=== PATIENT | male | born 1990 | race Caucasian/White ===

== ENCOUNTER 2024-05-13 08:21 | Inpatient (IN) | payer BC ==
--- OUTSIDE RECORDS SUMMARY | 2024-05-13 08:25 | XMS REPORT | Continuity of Care Document ---
Author Name Unknown Address [address] [facility] [address] [place] [address] [facility] Address [address] [facility] [address] [place] [address] Care Team Providers Care Patient Account Analyst Name Role Phone Vikki Godoy Primary Care Physician Medications Ordered Medication Name Filled Medication Name Start Date Stop Date Current Medication? Ordering Clinician Indication Dosage Frequency Signature (SIG) Comments Components Source losartan 100 mg tablet 6-12 00:00: 00 Yes mg José Bella losartan 100 mg tablet 5 00:00: 00 Yes mg José Bella simvastatin 10 mg tablet 5-03 00:00: 00 Yes mg José Bella DEXTROAMP-A MPHET ER 20 MG 1-29 00:00: 00 Yes 20 José Bella TAKE ONE TABLET BID NEEDED FOR MUSCLE SPASM 2022-04 1-30 00:00: 00 08-15 00:00 :00 No 5 José Bella TAKE 1 TABLET BY MOUTH DAILY 2022-04 1-10 00:00: 00 08-15 00:00 :00 No 100 José Bella SIMVASTATIN 10 MG 9-11 00:00: 00 Yes 10 José Bella DEXAMETHASO NE 4 MG 8-17 00:00: 00 Yes José Bella TAKE 1 TABLET BY MOUTH EVERY 8 HOURS UNTIL ALL TAKEN 17 00:00: 00 Yes José Bella TAKE 1 TABLET BY MOUTH EVERY 6 HOURS NEEDED FOR PAIN 17 00:00: 00 Yes José Bella TAKE 1 TABLET BY MOUTH EVERY 6 HOURS NEEDED FOR PAIN 8-15 00:00: 00 Yes José Bella AMOXICILLIN 875 MG 8-15 00:00: 00 Yes José Bella TAKE 1 TABLET BY MOUTH AT BEDTIME 8-08 00:00: 00 Yes José Bella LOSARTAN POTASSIUM 100 MG 8-02 00:00: 00 Yes José Bella TAKE 1 CAPSULE BY MOUTH THREE TIMES DAILY FOR 7 DAYS 0 7-21 00:00: 00 Yes José Bella TAKE 1 TABLET TWICE DAILY NEEDED. 5-13 00:00: 00 08-15 00:00 :00 No 10 José Bella TAKE 1 TABLET EVERY 8 HOURS WITH FOOD NEEDED. 5-13 00:00: 00 08-15 00:00 :00 No 800 José Bella TAKE 1 TABLET AT BEDTIME. - 00:00: 00 08-15 00:00 :00 No 10 José Bella TAKE 1 TABLET DAILY. 4-20 00:00: 00 08-15 00:00 :00 No 100 José Bella TAKE 1 TABLET DAILY. 3-14 00:00: 00 08-15 00:00 :00 No 100 José Bella TAKE 1 TABLET DAILY. 3-09 00:00: 00 08-15 00:00 :00 No 50 José Bella TAKE 1 TABLET BY MOUTH TWICE DAILY FOR 7 DAYS 2-16 00:00: 00 08-15 00:00 :00 No José Bella PREDNISONE 5 MG TABS 2-16 00:00: 00 08-15 00:00 :00 No José Tiffanie Bella ONDANSETRON ODT 4 MG TBDP 2021-04 0-02 00:00: 00 08-15 00:00 :00 No José Tiffanie Bella TAKE 1 TABLET BY MOUTH TWICE DAILY FOR 5 DAYS - 00:00: 00 08-15 00:00 :00 No José Tiffanie Shayne AZITHROMYCI N 250 MG TABS - 00:00: 00 08-15 00:00 :00 No José Bella ALBUTEROL SULFATE HFA 108 (90 Base) MCG/ACT AERS 9-07 00:00: 00 08-15 00:00 :00 No José F Shayne AMOXICILLIN 500 MG 4-25 00:00: 00 08-15 00:00 :00 No José F Shayne Vital Signs Vital Name Observation Time Observation Value Comments S ource BP Systolic 2023-09-25 17:27:00 136 mm[Hg] Step hen F Shayne BP Diastolic 2023-09-25 17:27:00 71 mm[Hg] Derrick phen F Shayne Weight Measured 2023-09-25 17:27:00 181.20 pounds José F Shayne Height Measured 2023-09-25 17:27:00 69.00 inches José F Shayne Body Temperature 2023-09-25 17:27:00 97.60 degrees José F Shayne Heart Rate 2023-09-25 17:27:00 67.00 /min Sejal en F Shayne Respiratory Rate 2023-09-25 17:27:00 18.00 /min José F Shayne BP Systolic 2023-05-07 14:35:00 170 mm[Hg] Step hen F Shayne BP Diastolic 2023-05-07 14:35:00 91 mm[Hg] Derrick phen F Shayne Weight Measured 2023-05-07 14:35:00 186.80 pounds José F Shayne Height Measured 2023-05-07 14:35:00 69.00 inches José F Shayne Body Temperature 2023-05-07 14:35:00 98.20 degrees José F Shayne Heart Rate 2023-05-07 14:35:00 68.00 /min Sejal en F Shayne Respiratory Rate 2023-05-07 14:35:00 18.00 /min José F Shayne BP Systolic 2023-03-14 10:28:00 153 mm[Hg] Step hen F Shayne BP Diastolic 2023-03-14 10:28:00 104 mm[Hg] Derrick phen F Shayne Weight Measured 2023-03-14 10:28:00 178.20 pounds José F Shayne Height Measured 2023-03-14 10:28:00 69.00 inches José F Shayne Body Temperature 2023-03-14 10:28:00 98.30 degrees José F Shayne Heart Rate 2023-03-14 10:28:00 81.00 /min Sejal en F Shayne Respiratory Rate 2023-03-14 10:28:00 19.00 /min José F Shayne BP Systolic 2023-02-22 11:33:00 169 mm[Hg] Step hen F Shayne BP Diastolic 2023-02-22 11:33:00 103 mm[Hg] Derrick phen F Shayne Weight Measured 2023-02-22 11:33:00 178.00 pounds José F Shayne Height Measured 2023-02-22 11:33:00 69.00 inches José F Shayne Body Temperature 2023-02-22 11:33:00 97.90 degrees José F Shayne Heart Rate 2023-02-22 11:33:00 67.00 /min Sejal en F Shayne Respiratory Rate 2023-02-22 11:33:00 José F Shayne BP Systolic 2023-02-22 11:26:00 169 mm[Hg] Step hen F Shayne BP Diastolic 2023-02-22 11:26:00 103 mm[Hg] Derrick phen F Shayne Weight Measured 2023-02-22 11:26:00 178.00 pounds José F Shayne Height Measured 2023-02-22 11:26:00 69.00 inches José F Shayne Body Temperature 2023-02-22 11:26:00 97.90 degrees José F Shayne Heart Rate 2023-02-22 11:26:00 67.00 /min Sejal en F Shyane Respiratory Rate 2023-02-22 11:26:00 José F Shayne BP Systolic 2022-08-01 17:16:00 143 mm[Hg] Step hen F Shayne BP Diastolic 2022-08-01 17:16:00 90 mm[Hg] Derrick phen F Shayne Weight Measured 2022-08-01 17:16:00 177.80 pounds José F Shayne Height Measured 2022-08-01 17:16:00 69.00 inches José F Shayne Body Temperature 2022-08-01 17:16:00 98.30 degrees José F Shayne Heart Rate 2022-08-01 17:16:00 87.00 /min Sejal en F Shayne Respiratory Rate 2022-08-01 17:16:00 18.00 /min José F Shayne Weight Measured 2022-06-25 15:06:00 José Bella Height Measured 2022-06-25 15:06:00 Josédelia Bella Body Temperature 2022-06-25 15:06:00 Josédelia Bella Heart Rate 2022-06-25 15:06:00 Sejal en F Shayne Respiratory Rate 2022-06-25 15:06:00 José Bella BP Systolic 2022-06-25 15:06:00 154 mm[Hg] Step hen F Shayne BP Diastolic 2022-06-25 15:06:00 105 mm[Hg] Derrick phen F Shayne BP Systolic 2022-06-21 10:34:00 167 mm[Hg] Step hen F Shayne BP Diastolic 2022-06-21 10:34:00 96 mm[Hg] Derrick phen Tiffanie Bella Weight Measured 2022-06-21 10:34:00 175.00 pounds José Bella Height Measured 2022-06-21 10:34:00 69.00 inches José Bella Body Temperature 2022-06-21 10:34:00 98.30 degrees José Bella Heart Rate 2022-06-21 10:34:00 68.00 /min Sejal en Tiffanie Bella Respiratory Rate 2022-06-21 10:34:00 18.00 /min José Bella Encounters Start Date/Time End Date/Time Encounter Type Admission Type Attending [facility] Care Department Encounter ID Source 2024-02-07 14:22:03 2024-02-07 14:22:03 Outpatient [facility] [id number] José Bella 2023-09-25 17:22:05 2023-09-25 17:22:05 Outpatient [facility] S[facility] [id number] José Bella 2023-09-25 00:00:00 2023-09-25 00:00:00 Outpatient Visit SFA [id number] José Bella 2023-05-07 14:27:24 2023-05-07 14:27:24 Outpatient [facility] SFA [id number] José Bella 2023-03-14 10:21:41 2023-03-14 10:21:41 Outpatient [facility] SFA [id number] José Bella 2023-02-22 11:22:01 2023-02-22 11:22:01 Outpatient [facility] [id number] José Bella 2022-08-07 11:00:54 2022-08-07 11:00:54 Outpatient [place] [id number] José Bella 2022-08-02 14:01:05 2022-08-02 14:01:05 Outpatient [facility] [id number] José Bella 2022-08-01 17:08:52 2022-08-01 17:08:52 Outpatient [facility] [id number] José Bella 2022-06-26 14:30:55 2022-06-26 14:30:55 Outpatient [facility] [id number] José Bella 2022-06-25 14:51:27 2022-06-25 14:51:27 Outpatient [facility] [id number] José Bella 2022-06-21 10:21:16 2022-06-21 10:21:16 Outpatient [facility] [id number] José Bella Results Test Description Test Time Test Comments Results Result Co mments Source COMPREHENSIVE METABOLIC [id number] 04:20:29* Test Item Value Reference Range Interpretation Comme nts GLUCOSE (test code = 2217) 87 MG/DL 70-99 BUN (test code = 2208) 11 MG/DL 6-20 CREATININE (test code = 2214) 1.35 MG/DL 0.80-1.40 eGFR (2020 CKD-EPI) (test code = 15017) 71 ML/MIN/1.73 >60 CALC BUN/CREAT (test code = 2235) 8 RATIO 6-28 SODIUM (test code = 2231) 143 MEQ/L 133-146 POTASSIUM (test code = 2228) 4.0 MEQ/L 3.5-5.4 CHLORIDE (test code = 2215) 103 MEQ/L 95-107 CARBON DIOXIDE (test code = 2206) 28 MEQ/L 19-31 CALCIUM (test code = 2209) 9.6 MG/DL 8.5-10.5 PROTEIN, TOTAL (test code = 222) 7.0 G/DL 6.1-8.3 ALBUMIN (test code = 2201) 4.7 G/DL 3.5-5.2 CALC GLOBULIN (test code = 2240) 2.3 G/DL 1.9-3.7 CALC A/G RATIO (test code = 2234) 2.0 RATIO 1.0-2.6 BILIRUBIN, TOTAL (test code = 2207) 0.4 MG/DL <=1.2 ALKALINE PHOSPHATASE (test code = 2204) 53 U/L 40-112 AST (test code = 2218) 20 U/L 9-50 ALT (test code = 2219) 26 U/L 5-50 UNLESS OTHERWISE INDICATED, ALL TESTING PERFORMED AT [facility] [address] [place] [id number] DETECTIVE NARCOTICS AND VICE: SARANYA PETERS M.D. CLIA NUMBER [id number] [facility] [place]. [id number] HEMOGLOBIN [id number] 02:31:16* Test Item Value Reference Range Interpretation Comme nts HEMOGLOBIN A1c (test code = 22560) 5.4 % 4.2-5.6 CBC W/AUTO DIFF WITH [id number] 01:35:42* Test Item Value Reference Range Interpretation Comme nts WBC (test code = 1001) 8.2 K/UL 3.5-11.0 RBC (test code = 1002) 5.24 M/UL 4.50-6.10 HEMOGLOBIN (test code = 1003) 15.8 G/DL 13.5-17.0 HEMATOCRIT (test code = 1004) 45.6 % 40.0-51.0 MCV (test code = 1005) 87.0 fL 80.0-99.0 MCH (test code = 1006) 30.2 PG 25.0-33.0 MCHC (test code = 1007) 34.6 G/DL 31.0-36.0 RDW (test code = 1038) 12.1 % 11.5-15.0 NEUTROPHILS (test code = 1008) 54.0 % LYMPHOCYTES (test code = 1010) 30.5 % MONOCYTES (test code = 1011) 6.8 % EOSINOPHILS (test code = 1012) 7.9 % BASOPHILS (test code = 1013) 0.7 % IMMATURE GRANULOCYTES (test code = 1036) 0.1 % NUCLEATED RBCS (test code = 1065) 0.0 /100 WBC'S See_Comment [Automated messa ge] The system which generated this result transmitted reference range: 0.0. The reference range was not used to interpret this result as normal/abnormal. PLATELET COUNT (test code = 1015) 288 K/UL 130-400 ABSOLUTE NEUTROPHILS (test code = 1066) 4.45 K/UL 1.50-7.50 ABSOLUTE LYMPHOCYTES (test code = 1067) 2.51 K/UL 1.00-4.00 ABSOLUTE MONOCYTES (test code = 1068) 0.56 K/UL 0.20-1.00 ABSOLUTE EOSINOPHILS (test code = 1040) 0.65 K/UL 0.00-0.50 H ABSOLUTE BASOPHILS (test code = 1069) 0.06 K/UL 0.00-0.20 ABS IMMATURE GRANULOCYTES (test code = 1020) 0.01 K/UL 0.00-0.10 ABS NUCLEATED RBCS (test code = 24723) 0.00 K/UL 0.00-0.11 CBC W/AUTO [id number] 00:00:00* Test Item Value Reference Range Interpretation Comme nts WBC (test code = 1001) 8.2 K/UL RBC (test code = 1002) 5.24 M/UL HEMOGLOBIN (test code = 1003) 15.8 G/DL HEMATOCRIT (test code = 1004) 45.6 % MCV (test code = 1005) 87.0 fL MCH (test code = 1006) 30.2 PG MCHC (test code = 1007) 34.6 G/DL RDW (test code = 1038) 12.1 % NEUTROPHILS (test code = 1008) 54.0 % LYMPHOCYTES (test code = 1010) 30.5 % MONOCYTES (test code = 1011) 6.8 % EOSINOPHILS (test code = 1012) 7.9 % BASOPHILS (test code = 1013) 0.7 % IMMATURE GRANULOCYTES (test code = 1036) 0.1 % NUCLEATED RBCS (test code = 1065) 0.0 /100WBC'S PLATELET COUNT (test code = 1015) 288 K/UL ABSOLUTE NEUTROPHILS (test c ode = 1066) 4.45 K/UL ABSOLUTE LYMPHOCYTES (test c ode = 1067) 2.51 K/UL ABSOLUTE MONOCYTES (test cod e = 1068) 0.56 K/UL ABSOLUTE EOSINOPHILS (test c ode = 1040) 0.65 K/UL ABSOLUTE BASOPHILS (test cod e = 1069) 0.06 K/UL ABS IMMATURE GRANULOCYTES (t est code = 1020) 0.01 K/UL ABS NUCLEATED RBCS (test cod e = 74887) 0.00 K/UL José BellaHEMOGLOBIN [id number] 00:00:00* Test Item Value Reference Range Interpretation Comme nts HEMOGLOBIN A1c (test code = 23145) 5.4 % José Moreno AustinLIPID [id number] 00:00:00* Test Item Value Reference Range Interpretation Comme nts CHOLESTEROL (test code = 2210) 179 MG/DL TRIGLYCERIDES (test code = 2232) 237 MG/DL HDL CHOLESTEROL (test code = 2220) 35 MG/DL CALC LDL CHOL (test code = 2237) 108 MG/DL RISK RATIO LDL/HDL (test cod e = 2238) 3.09 RATIO José BellaCOMPREHENSIVE METABOLIC [id number] 00:00:00* Test Item Value Reference Range Interpretation Comme nts GLUCOSE (test code = 2217) 87 MG/DL BUN (test code = 2208) 11 MG/DL CREATININE (test code = 2214) 1.35 MG/DL eGFR (2020 CKD-EPI) (test co de = 04277) 71 ML/MIN/1.73 CALC BUN/CREAT (test code = 2235) 8 RATIO SODIUM (test code = 2231) 143 MEQ/L POTASSIUM (test code = 2228) 4.0 MEQ/L CHLORIDE (test code = 2215) 103 MEQ/L CARBON DIOXIDE (test code = 2206) 28 MEQ/L CALCIUM (test code = 2209) 9.6 MG/DL PROTEIN, TOTAL (test code = 2229) 7.0 G/DL ALBUMIN (test code = 2201) 4.7 G/DL CALC GLOBULIN (test code = 2240) 2.3 G/DL CALC A/G RATIO (test code = 2234) 2.0 RATIO BILIRUBIN, TOTAL (test code = 2207) 0.4 MG/DL ALKALINE PHOSPHATASE (test code = 2204) 53 U/L AST (test code = 2218) 20 U/L ALT (test code = 2219) 26 U/L José Moreno AustinLIPID [id number] 06:12:20* Test Item Value Reference Range Interpretation Comme nts CHOLESTEROL (test code = 2210) 258 MG/DL <200 H TRIGLYCERIDES (test code = 2232) 159 MG/DL <150 H HDL CHOLESTEROL (test code = 2220) 49 MG/DL >39 CALC LDL CHOL (test code = 2237) 178 MG/DL <100 H NOTE: CALCULATED LDL IS BASED ON LOI-MONTES METHOD WHICHINCLUDES ADJUSTABLE TRIGLYCERIDE:VLDL CHOLESTEROL RATIO.THIS FACTOR VARIES BY MEASURED TRIGLYCERIDE AND NON-HDLCHOLESTEROL CONCENTRATIONS WITH INCREASED CALCULATED LDL SEENIN HIGHER TRIGLYCERIDE OR LOWER NON-HDL SPECIMENS. FOR MOREINFORMATION, SEE CLIENT ANNOUNCEMENT AT [email or web address] RISK RATIO LDL/HDL (test code = 2238) 3.63 RATIO <3.55 H COMPREHENSIVE METABOLIC [id number] 06:12:20* Test Item Value Reference Range Interpretation Comme nts GLUCOSE (test code = 2216) 93 MG/DL 70-99 BUN (test code = 2207) 16 MG/DL 6-20 CREATININE (test code = 2214) 1.18 MG/DL 0.80-1.40 eGFR (2020 CKD-EPI) (test code = 85804) 84 ML/MIN/1.73 >60 CALC BUN/CREAT (test code = 2235) 14 RATIO 6-28 SODIUM (test code = 223) 143 MEQ/L 133-146 POTASSIUM (test code = 2228) 4.4 MEQ/L 3.5-5.4 CHLORIDE (test code = 2215) 105 MEQ/L 95-107 CARBON DIOXIDE (test code = 2206) 26 MEQ/L 19-31 CALCIUM (test code = 2209) 9.7 MG/DL 8.5-10.5 PROTEIN, TOTAL (test code = 222) 7.1 G/DL 6.1-8.3 ALBUMIN (test code = 1) 5.0 G/DL 3.5-5.2 CALC GLOBULIN (test code = 2240) 2.1 G/DL 1.9-3.7 CALC A/G RATIO (test code = 2234) 2.4 RATIO 1.0-2.6 BILIRUBIN, TOTAL (test code = 2206) 0.7 MG/DL <=1.2 ALKALINE PHOSPHATASE (test code = 2204) 58 U/L 40-112 AST (test code = 2218) 30 U/L 9-50 ALT (test code = 2219) 34 U/L 5-50 UNLESS OTHERWISE INDICATED, ALL TESTING PERFORMED AT [facility] [address] [place] [address] DETECTIVE NARCOTICS AND VICE: SARANYA PETERS M.D. IA NUMBER [id number] [facility] [place]. [id number] LIPID [id number] 00:00:00* Test Item Value Reference Range Interpretation Comme nts CHOLESTEROL (test code = 2210) 258 MG/DL TRIGLYCERIDES (test code = 2232) 159 MG/DL HDL CHOLESTEROL (test code = 2220) 49 MG/DL CALC LDL CHOL (test code = 2237) 178 MG/DL RISK RATIO LDL/HDL (test cod e = 2238) 3.63 RATIO José BellaCOMPREHENSIVE METABOLIC [id number] 00:00:00* Test Item Value Reference Range Interpretation Comme nts GLUCOSE (test code = 2217) 93 MG/DL BUN (test code = 2208) 16 MG/DL CREATININE (test code = 2214) 1.18 MG/DL eGFR (2020 CKD-EPI) (test co de = 32620) 84 ML/MIN/1.73 CALC BUN/CREAT (test code = 2235) 14 RATIO SODIUM (test code = 2231) 143 MEQ/L POTASSIUM (test code = 2228) 4.4 MEQ/L CHLORIDE (test code = 2215) 105 MEQ/L CARBON DIOXIDE (test code = 2206) 26 MEQ/L CALCIUM (test code = 2209) 9.7 MG/DL PROTEIN, TOTAL (test code = 2229) 7.1 G/DL ALBUMIN (test code = 2201) 5.0 G/DL CALC GLOBULIN (test code = 2240) 2.1 G/DL CALC A/G RATIO (test code = 2234) 2.4 RATIO BILIRUBIN, TOTAL (test code = 2207) 0.7 MG/DL ALKALINE PHOSPHATASE (test code = 2204) 58 U/L AST (test code = 2218) 30 U/L ALT (test code = 2219) 34 U/L José BellaCOMPREHENSIVE METABOLIC [id number] 09:36:55* Test Item Value Reference Range Interpretation Comme nts GLUCOSE (test code = 2216) 92 MG/DL 70-99 BUN (test code = 2207) 14 MG/DL 6-20 CREATININE (test code = 2213) 1.06 MG/DL 0.80-1.40 eGFR (2020 CKD-EPI) (test code = 10997) 96 ML/MIN/1.73 >60 CALC BUN/CREAT (test code = 2234) 13 RATIO 6-28 SODIUM (test code = 2230) 143 MEQ/L 133-146 POTASSIUM (test code = 2227) 4.2 MEQ/L 3.5-5.4 CHLORIDE (test code = 2214) 104 MEQ/L 95-107 CARBON DIOXIDE (test code = 2205) 25 MEQ/L 19-31 CALCIUM (test code = 2208) 9.7 MG/DL 8.5-10.5 PROTEIN, TOTAL (test code = 2228) 7.7 G/DL 6.1-8.3 ALBUMIN (test code = 2200) 4.9 G/DL 3.5-5.2 CALC GLOBULIN (test code = 2239) 2.8 G/DL 1.9-3.7 CALC A/G RATIO (test code = 2233) 1.8 RATIO 1.0-2.6 BILIRUBIN, TOTAL (test code = 2206) 0.6 MG/DL See_Comment [Automated me ssage] The system which generated this result transmitted reference range: <=1.2. The reference range was not used to interpret this result as normal/abnormal. ALKALINE PHOSPHATASE (test code = 2203) 73 U/L 40-112 AST (test code = 2217) 23 U/L 9-50 ALT (test code = 221) 43 U/L 5-50 LIPID [id number] 09:36:55* Test Item Value Reference Range Interpretation Comme nts CHOLESTEROL (test code = 2210) 254 MG/DL <200 H TRIGLYCERIDES (test code = 2232) 249 MG/DL <150 H HDL CHOLESTEROL (test code = 2220) 42 MG/DL >39 CALC LDL CHOL (test code = 223) 171 MG/DL <100 H NOTE: CALCULATED LDL IS BASED ON LOI-MONTES METHOD WHICHINCLUDES ADJUSTABLE TRIGLYCERIDE:VLDL CHOLESTEROL RATIO.THIS FACTOR VARIES BY MEASURED TRIGLYCERIDE AND NON-HDLCHOLESTEROL CONCENTRATIONS WITH INCREASED CALCULATED LDL SEENIN HIGHER TRIGLYCERIDE OR LOWER NON-HDL SPECIMENS. FOR MOREINFORMATION, SEE CLIENT ANNOUNCEMENT AT [email or web address] [email or web address] RATIO LDL/HDL (test code = 2238) 4.07 RATIO <3.55 H [facility] has i mportant pathology staff changes effective 06/13/2022. New pathology staff will provide uninterrupted, excellent patient care and clinical consultation. See URL: [email or web address]. UNLESS OTHERWISE INDICATED, ALL TESTING PERFORMED AT [facility] [address] [place] [address] DETECTIVE NARCOTICS AND VICE: SARANYA PETERS M.D. IA NUMBER [id number] [facility] [place]. [id number] COMPREHENSIVE METABOLIC [id number] 00:00:00* Test Item Value Reference Range Interpretation Comme nts GLUCOSE (test code = 2217) 92 MG/DL BUN (test code = 2208) 14 MG/DL CREATININE (test code = 2214) 1.06 MG/DL eGFR (2020 CKD-EPI) (test co de = 78777) 96 ML/MIN/1.73 CALC BUN/CREAT (test code = 2235) 13 RATIO SODIUM (test code = 2231) 143 MEQ/L POTASSIUM (test code = 2228) 4.2 MEQ/L CHLORIDE (test code = 2215) 104 MEQ/L CARBON DIOXIDE (test code = 2206) 25 MEQ/L CALCIUM (test code = 2209) 9.7 MG/DL PROTEIN, TOTAL (test code = 2229) 7.7 G/DL ALBUMIN (test code = 2201) 4.9 G/DL CALC GLOBULIN (test code = 2240) 2.8 G/DL CALC A/G RATIO (test code = 2234) 1.8 RATIO BILIRUBIN, TOTAL (test code = 2207) 0.6 MG/DL ALKALINE PHOSPHATASE (test code = 2204) 73 U/L AST (test code = 2218) 23 U/L ALT (test code = 2219) 43 U/L José BellaLIPID [id number] 00:00:00* Test Item Value Reference Range Interpretation Comme nts CHOLESTEROL (test code = 2210) 254 MG/DL TRIGLYCERIDES (test code = 2232) 249 MG/DL HDL CHOLESTEROL (test code = 2220) 42 MG/DL CALC LDL CHOL (test code = 2237) 171 MG/DL RISK RATIO LDL/HDL (test cod e = 2238) 4.07 RATIO José Bella
[2024-05-13] MEDS ORDERED: ONDANSETRON 4 MG/2 ML VIAL ONE (09:03)
[2024-05-13] MEDS ORDERED: LIDOCAINE VISCOUS 2% 10ML ORAL SOLN ONE (09:04)
[2024-05-13] MEDS ORDERED: FAMOTIDINE 20 MG/2 ML VIAL IV ONE (09:04)
[2024-05-13] MEDS ORDERED: MAGNES/ALUMIN/SIMET 30ML UCUP ONE (09:04)
--- NOTE | 2024-05-13 09:27 | RAD REPORT ---
EXAMINATION: CT ABDOMEN AND PELVIS WITH CONTRAST CLINICAL INDICATION: Male, 34 years old.ABD PAIN TECHNIQUE: CT abdomen and pelvis was performed, after the administration of IV contrast, [facility]. Axial, sagittal and coronal reconstructions were obtained. One or more of the following dose reduction techniques were used: Automated exposure control, adjustment of the mA and/o r kV according to patient size, and/or iterative reconstruction. Unless otherwise specified, incidental findings do not require dedicated imaging follow-up. [id number]. COMPARISON: No prior exam. FINDINGS: LOWER CHEST: No acute process identified.No significant pericardial effusion. Mild circumferential th ickening of the distal esophagus which could reflect esophagitis. UPPER GI: No significant abnormality. LIVER: No significant focal abnormality. GALLBLADDER/BILE DUCTS: No biliary ductal dilatation.? PANCREAS: No mass, ductal dilation, or mariela-pancreatic fluid. SPLEEN: Unremarkable. ADRENALS: No adrenal masses. KIDNEYS AND URETERS: No hydronephrosis.No suspicious renal mass. ABDOMINAL AORTA AND OTHER VESSELS: Normal caliber aorta and IVC. PERITONEUM: No abnormal free fluid. No free air. LYMPH NODES: No pathologic lymphadenopathy. ABDOMINAL WALL: Unremarkable SMALL BOWEL/COLON: Small bowel has normal course and caliber. No colonic wall thickening or pericolon ic inflammatory changes.Normal appendix. URINARY BLADDER: Underdistended but grossly unremarkable. REPRODUCTIVE ORGANS: No pathologic process. MUSCULOSKELETAL: No acute or suspicious osseous abnormality. ADDITIONAL FINDINGS: None. IMPRESSION: No acute or significant abnormalities seen in the abdomen or pelvis. No acute appendicitis. No urinar y tract calculi.
[2024-05-13 09:40] LABS: Absolute Basophils 0.2 K/uL (0-0.5); Absolute Lymphocytes (CBC) 4.7 K/uL (0.7-4.9); Absolute Monocytes 0.8 K/uL (0.1-1.3); Basophils % 0.8 % (0-1.3); Eosinophils % 28.2 % (0-4.4); Hemoglobin 16.1 g/dL (13.6-17.9); MCH 28.6 pg (27.0-35.0); MCHC 32.9 g/dL (32.0-36.0); MCV 86.8 fL (80-100); MPV 9.1 fL (7.6-11.3); Monocytes % 3.3 % (3.3-12.3); Neutrophils % 48.7 % (41.7-73.7); Nucleated Red Blood Cells % 0.1 % (0-0); Platelets 290 thou/uL (152-406); RBC Red Blood Cell Count 5.65 M/uL (4.33-5.43); Red Cell Distribution Width 13.8 % (12.1-15.2)
[2024-05-13 09:46] LABS: Albumin 3.6 g/dL (3.4-5.0); Albumin/Globulin Ratio 1.1 (1.1-1.8); Anion Gap 6.6 mEq/L (5.0-15.0); Bilirubin Total 0.2 mg/dL (0.2-1.0); Globulin 3.4 g/dL (2.3-3.5); Potassium 3.6 mEq/L (3.5-5.1)
[2024-05-13 10:55] LABS: Atypical Lymphocytes 1 %; Blood Morphology Comment NOT SEEN (NOT SEEN); Differential Total Cells Count 100; Eosinophils 27 % (0-3); Lymphocytes 17 % (15-42); Monocytes 2 % (0-10); Platelet Estimate ADEQ; Segmented Neutrophils 53 % (40-80)
--- NOTE | 2024-05-13 11:18 | RAD REPORT ---
Abdomen Exam Limited: 05/13/2024 11:06 AM CLINICAL HISTORY: ABD PAIN STUDY: Limited right upper quadrant ultrasound of abdomen. COMPARISON: Same day CT FINDINGS: Liver: Limited evaluation but grossly unremarkable. Bile ducts: No intrahepatic or extrahepatic biliary ductal dilatation. Common bile duct measures 2 mm. Gallbladder: Borderline gallbladder wall thickening but no infiltrate findings suggest acute cholecys titis. IMPRESSION: Borderline gallbladder wall thickening which is of doubtful significance. No ancillary findings to marie ggest acute cholecystitis. Negative for cholelithiasis.
--- NOTE | 2024-05-13 11:35 | ER ---
Nurse's Notes [facility] Name: Zack Dc Age: 34 yrs Sex: Male : 1990 Arrival Date: 05/13/2024 Time: 08:21 Bed 2 Private MD: Diagnosis: Abdominal pain, unspecified;Esophagitis, unspecified;Gallbladder wall thickening Presentation: 05/13 08:52 Chief complaint: Patient states: Abdominal pain, radiates to back, reports nausea x 1 jl7 week, denies vomiting/diarrhea. Reports eating and drinking normal. Coronavirus screen: At this time, the client does not indicate any symptoms associated with coronavirus-19. Ebola Screen: No symptoms or risks identified at this time. Initial Sepsis Screen: Does the patient meet any 2 criteria? No. Patient's initial sepsis screen is negative. Does the patient have a suspected source of infection? No. Patient's initial sepsis screen is negative. Risk Assessment: Do you want to hurt yourself or someone else? Patient reports no desire to harm self or others. Onset of symptoms was May 06, 2024. 08:52 Method Of Arrival: Ambulatory jl7 08:52 Acuity: KASIA 2 jl7 Triage Assessment: 08:54 General: Appears in no apparent distress. uncomfortable, Behavior is calm, cooperative, jl7 appropriate for age. Pain: Complains of pain in back and abdomen. Neuro: Level of Consciousness is awake, alert, obeys commands, Oriented to person, place, time, situation. Cardiovascular: Patient's skin is warm and dry. Respiratory: Airway is patent Respiratory effort is even, unlabored, Respiratory pattern is regular, symmetrical. GI: Reports nausea. Derm: Skin is pink, warm \T\ dry. Historical: - Allergies: 08:54 No Known Allergies; jl7 - Home Meds: 08:54 losartan oral [Active]; jl7 - PMHx: 08:54 Hypertensive disorder; jl7 - Immunization history:: Adult Immunizations unknown. - Infectious Disease History:: Denies. - Social history:: Smoking status: unknown. - Family history:: not pertinent. - Hospitalizations: : No recent hospitalization is reported. Screenin:05 [facility] ED Fall Risk Assessment (Adult) History of falling in the last 3 months, cm10 including since admission No falls in past 3 months (0 pts) Confusion or Disorientation No (0 pts) Intoxicated or Sedated No (0 pts) Impaired Gait No (0 pts) Mobility Assist Device Used No (0 pt) Altered Elimination No (0 pt) Score/Fall Risk Level 0 - 2 = Low Risk Oriented to surroundings, Maintained a safe environment, Hourly rounding (assess needs \T\ fall precautionary measures) done. Abuse screen: Denies threats or abuse. Denies injuries from another. Nutritional screening: No deficits noted. Tuberculosis screening: No symptoms or risk factors identified. Assessment: 12:04 General: Appears in no apparent distress. comfortable, Behavior is calm, cooperative, cm10 appropriate for age. Pain: Complains of pain in abdomen and back Pain currently is 3 out of 10 on a pain scale. Neuro: No deficits noted. Level of Consciousness is awake, alert, obeys commands, Oriented to person, place, time, situation, Appropriate for age. Respiratory: No deficits noted. Airway is patent Respiratory effort is even, unlabored, Respiratory pattern is regular, symmetrical. GI: Reports lower abdominal pain, nausea. Musculoskeletal: No deficits noted. Range of motion: intact in all extremities. 13:30 Reassessment: Patient appears in no apparent distress at this time. Patient and/or cm10 family updated on plan of care and expected duration. Pain level reassessed. Patient is alert, oriented x 3, equal unlabored respirations, skin warm/dry/pink. Vital Signs: 08:52 BP 197 / 107; Pulse 79; Resp 15; Pulse Ox 97% ; jl7 09:44 BP 168 / 99; Pulse 68; Resp 15; Pulse Ox 100% ; ko1 12:04 BP 170 / 88; Pulse 76; Resp 15; Pulse Ox 100% on R/A; Pain 3/10; cm10 13:00 BP 153 / 89; Pulse 69; Resp 15; Pulse Ox 97% on R/A; cm10 12:04 Pain Scale: Adult cm10 ED Course: 08:24 Patient arrived in ED. al6 08:27 Dom Peralta MD is Attending Physician. rn 08:54 Triage completed. jl7 08:54 Arm band placed on right wrist. jl7 08:58 Magdalene Barrow, STANISLAV is Primary Nurse. ld1 09:16 CT Abd/Pelvis - IV Contrast Only In Process Unspecified. EDMS 09:16 Inserted saline lock: 20 gauge in left antecubital area, using aseptic technique. Blood ko1 collected. Flushed with 10 mL NS. 11:08 US Abdomen Limited In Process Unspecified. EDMS 11:33 Iván Peralta MD is Hospitalizing Provider. rn 11:55 First set of blood cultures drawn by me. cm10 12:03 Primary Nurse role handed off by Magdalene Barrow, STANISLAV cm10 12:03 Courtney Vizcaino, RN is Primary Nurse. cm10 12:03 Lactate w/ 2H reflex if indic. Sent. cm10 12:03 Protime (+inr) Sent. cm10 12:03 Ptt, Activated Sent. cm10 12:05 Patient has correct armband on for positive identification. Bed in low position. Call cm10 light in reach. Side rails up X2. Provided Education on: Need for admit. 12:30 Lab(s) recollected, by me, sent to lab. Second set of blood cultures drawn. Inserted zm saline lock: 20 gauge in right forearm, using aseptic technique. Blood collected. Flushed with 10 mL NS. 14:00 No provider procedures requiring assistance completed. Patient admitted, IV remains in cm10 place. 14:01 Report given to Yuni Delacruz RN with OR. cm10 Administered Medications: 09:10 Drug: GI Cocktail without - (Maalox PO 30 ml, Lidocaine Mucous Membrane 2 % 15 ld1 ml) PO once Route: PO; 09:19 Follow up: Response: No adverse reaction ld1 09:19 Drug: Famotidine IVP 20 mg IVP once; dilute with 10 mL 0.9% NaCl; give over 2 minutes ld1 Route: IVP; Site: left antecubital; 10:45 Follow up: Response: No adverse reaction cm10 09:19 Drug: Ondansetron IVP 4 mg IVP once; over 2 minutes Route: IVP; Site: left antecubital; ld1 10:45 Follow up: Response: No adverse reaction cm10 12:45 Drug: Piperacillin-Tazobactam IVPB 3.375 grams IVPB once over 60 mins; (mix in NS 100 cm10 mL) Route: IVPB; Infused Over: 60 mins; Site: right forearm; 13:15 Follow up: Response: No adverse reaction; IV Status: Completed infusion; IV Intake: cm10 100ml Medication: 14:01 VIS not applicable for this client. cm10 Intake: 13:15 IV: 100ml; Total: 100ml. cm10 Outcome: 11:35 Decision to Hospitalize by Provider. rn 14:00 Admitted to OR accompanied by nurse, via stretcher, cm10 14:00 Condition: good 14:00 Instructed on the need for admit, 14:01 Patient left the ED. cm10 Signatures: Dispatcher [employer] EDMS Dom Peralta MD MD rn Leal, Jahala RN RN jl7 Magdalene Barrow RN RN [email or web address] Fiona Vizcaino Kathy, RN RN ko1 Courtney Vizcaino RN RN cm10 Magdalene Borges
--- NOTE | 2024-05-13 11:36 | EDPHYS ---
Physician Documentation [facility] Name: Zack Dc Age: 34 yrs Sex: Male : 1990 Arrival Date: 05/13/2024 Time: 08:21 Bed 2 Private MD: ED Physician Dom Peralta HPI: 05/13 09:43 This 34 yrs old Male presents to ER via Ambulatory with complaints of Abdominal Pain. rn 09:43 The patient presents to the emergency department with abdominal pain. Onset: The rn symptoms/episode began/occurred 1 week(s) ago. Possible causes: unknown. The symptoms are aggravated by nothing. The symptoms are alleviated by nothing. Severity of symptoms: At their worst the symptoms were mild in the emergency department the symptoms are unchanged. The patient has not experienced similar symptoms in the past. Patient reports epigastric abdominal pain that radiates to the back, associated with mild nausea. Reports increased pain when not eating anything on an empty stomach and about an hour after eating. No trauma. No chest pain. No shortness of breath. No blood in stool or dark stool. Has a history of heartburn.. Historical: - Allergies: 08:54 No Known Allergies; jl7 - Home Meds: 08:54 losartan oral [Active]; jl7 - PMHx: 08:54 Hypertensive disorder; jl7 - Immunization history:: Adult Immunizations unknown. - Infectious Disease History:: Denies. - Social history:: Smoking status: unknown. - Family history:: not pertinent. - Hospitalizations: : No recent hospitalization is reported. ROS: 09:43 Constitutional: Negative for fever, chills, and weight loss, Cardiovascular: Negative rn for chest pain, palpitations, and edema, Respiratory: Negative for shortness of breath, cough, wheezing, and pleuritic chest pain, Abdomen/GI: Positive for epigastric abdominal pain with nausea Back: Positive for back pain : Negative for injury, bleeding, discharge, and swelling, MS/Extremity: Negative for injury and deformity, Neuro: Negative for headache, weakness, numbness, tingling, and seizure, Exam: 09:43 Constitutional: This is a well developed, well nourished patient who is awake, alert, rn and in no acute distress. Cardiovascular: Regular rate and rhythm. No pulse deficits. Respiratory: No increased work of breathing, no retractions or nasal flaring. Abdomen/GI: Soft, mild epigastric tenderness. No rebound or guarding or peritoneal signs Back: No spinal tenderness. No costovertebral tenderness. Full range of motion. Vital Signs: 08:52 BP 197 / 107; Pulse 79; Resp 15; Pulse Ox 97% ; jl7 09:44 BP 168 / 99; Pulse 68; Resp 15; Pulse Ox 100% ; ko1 12:04 BP 170 / 88; Pulse 76; Resp 15; Pulse Ox 100% on R/A; Pain 3/10; cm10 13:00 BP 153 / 89; Pulse 69; Resp 15; Pulse Ox 97% on R/A; cm10 12:04 Pain Scale: Adult cm10 MDM: 08:27 Medical Screening Exam initiated rn 11:31 Differential diagnosis: Nonspecific abd pain, gastritis, cholecystitis, pancreatitis, rn viral gastroenteritis, gastroenteritis. Data reviewed: vital signs, nurses notes, lab test result(s), radiologic studies, CT scan, ultrasound, and as a result, I will admit patient. Consideration of Admission/Observation Patient was admitted/placed on observation. Escalation of care including admission/observation considered. Management of patient was discussed with the following: Musical Instruments Assembler: Discussed case with Dr. Jack, recommends admission to hospitalist service with broad-spectrum antibiotics given elevated WBC and questionable gallbladder wall thickening. Counseling: I had a detailed discussion with the patient and/or guardian regarding the historical points, exam findings, and any diagnostic results supporting the discharge/admit diagnosis, lab results, radiology results, the need for further work-up and treatment in the hospital. ED course: Patient with WBC 24, questionable gallbladder wall thickening. Also mild elevation of lipase and findings of esophagitis on CT. Clinically patient seems more of a gastritis/esophagitis. Will admit to hospitalist service for further care, antibiotics, pain control and GI along with surgical consultations.. 05/13 08:56 Order name: CBC with Diff; Complete Time: 10:59 rn 05/13 08:56 Order name: CMP; Complete Time: 10:20 rn 05/13 08:56 Order name: Lipase; Complete Time: 10:20 rn 05/13 09:44 Order name: Manual Differential; Complete Time: 10:59 EDMS 05/13 11:31 Order name: Blood Culture Adult (2) rn 05/13 11:31 Order name: Lactate w/ 2H reflex if indic.; Complete Time: 12:48 rn 05/13 11:31 Order name: Protime (+inr); Complete Time: 12:48 rn 05/13 11:31 Order name: Ptt, Activated; Complete Time: 12:48 rn 05/13 08:56 Order name: CT Abd/Pelvis - IV Contrast Only; Complete Time: 09:29 rn 05/13 10:43 Order name: US Abdomen Limited; Complete Time: 11:20 rn 05/13 08:56 Order name: IV Saline Lock; Complete Time: 09:19 rn 05/13 08:56 Order name: Labs collected and sent; Complete Time: 09:19 rn 05/13 11:31 Order name: IV Saline Lock - Large Bore; Complete Time: 12:02 rn 05/13 11:31 Order name: O2 Per Protocol; Complete Time: 12:02 rn 05/13 11:31 Order name: O2 Sat Monitoring; Complete Time: 12:02 rn 05/13 11:31 Order name: Vital Signs; Complete Time: 12:02 rn 05/13 12:09 Order name: Labs - recollect needed: recollect lactate use GREEN top on ice; Complete bd Time: 12:40 Administered Medications: 09:10 Drug: GI Cocktail without - (Maalox PO 30 ml, Lidocaine Mucous Membrane 2 % 15 ld1 ml) PO once Route: PO; 09:19 Follow up: Response: No adverse reaction ld1 09:19 Drug: Famotidine IVP 20 mg IVP once; dilute with 10 mL 0.9% NaCl; give over 2 minutes ld1 Route: IVP; Site: left antecubital; 10:45 Follow up: Response: No adverse reaction cm10 09:19 Drug: Ondansetron IVP 4 mg IVP once; over 2 minutes Route: IVP; Site: left antecubital; ld1 10:45 Follow up: Response: No adverse reaction cm10 12:45 Drug: Piperacillin-Tazobactam IVPB 3.375 grams IVPB once over 60 mins; (mix in NS 100 cm10 mL) Route: IVPB; Infused Over: 60 mins; Site: right forearm; 13:15 Follow up: Response: No adverse reaction; IV Status: Completed infusion; IV Intake: cm10 100ml Disposition Summary: 05/13/24 11:35 Hospitalization Ordered Notes: Hospitalization Status: Observation rn Provider: Iván Peralta rn Condition: Stable rn Problem: new rn Symptoms: are unchanged rn Bed/Room Type: Standard rn Location: [facility] ER HOLD(05/13/24 13:05) kb3 Room Assignment: ERHOLD-(05/13/24 13:05) kb3 Diagnosis - Abdominal pain, unspecified rn - Esophagitis, unspecified rn - Gallbladder wall thickening rn Forms: - Medication Reconciliation Form rn - SBAR form rn - Leadership Thank You Letter rn Signatures: Dispatcher [employer] EDMS Jeannine Childers bd Dom Peralta MD MD rn Attema, Lee, SOLE ASSESSOR-C SOLE ASSESSOR-Cla1 Mahendra Herring, RN RN jl7 Magdalene Barrow, RN RN ld1 Yuni Culver, RN RN [email or web address] Courtney Vizcaino, RN RN cm10 Corrections: (The following items were deleted from the chart) 10:44 10:44 Abdomen Limited+US.RAD.BRZ ordered. EDMS EDMS 11:31 11:31 BLOOD CULTURE*+BA.LAB.BRZ ordered. EDMS EDMS 11:31 11:31 LACTATE+C.LAB.BRZ ordered. EDMS EDMS 11:31 11:31 PROTIME (+INR)+COAG.LAB.BRZ ordered. EDMS EDMS 11:31 11:31 PTT, ACTIVATED+COAG.LAB.BRZ ordered. EDMS EDMS 13:05 11:35 Telemetry/MedSurg (observation) rn kb3 13:05 11:35 rn kb3
[2024-05-13] MEDS ORDERED: PIPERACIL/TAZO 3.375 GM VIAL IV ONE (12:09)
[2024-05-13] MEDS ORDERED: NA CHLORIDE 0.9% 100 ML ONE (12:09)
[2024-05-13 12:19] LABS: PT Prothrombin Time 10.7 SECONDS (9.4-12.5); PTT, Activated Partial Thromb 26.8 SECONDS (24.3-36.9); Protime INR 1.02
[2024-05-13] MEDS ORDERED: propofoL 200 MG/20 ML VIAL IV ONE (13:58)
[2024-05-13] MEDS ORDERED: LIDOCAINE 1% MPF 5 ML VIAL ONE (13:59)
[2024-05-13] MEDS ORDERED: SODIUM CHLORIDE 0.9% 10ML INJ IV PRN (14:49)
[2024-05-13] MEDS ORDERED: ONDANSETRON 4 MG/2 ML VIAL IV PRN (14:49)
--- NOTE | 2024-05-13 16:16 | P.HP ---
Certification for Inpatient Patient admitted to: Observation With expected LOS: <2 Midnights Patient will require the following post-hospital care: None Practitioner: I am a practitioner with admitting privileges, knowledge of patient current condition, hospital course, and medical plan of care. Services: Services provided to patient in accordance with Admission requirements found in Title 42 Section 412.3 of the Code of Federal Regulations Patient History Date of Service: 05/13/24 Reason for admission: Abdominal pain History of Present Illness: 34-year-old male with history of hypertension presents to the emergency department chief complaint of 1 week of epigastric abdominal pain. He was evaluated in the emergency department and his labs were significant for leukocytosis with a white blood cell count of 24.7 with 28.2% eosinophils, 12% neutrophils. CT of the abdomen pelvis was performed which demonstrated no acute or significant abnormality seen in the abdomen or pelvis, no acute appendicitis, no urinary tract calculi although it did show some distal esophageal thickening. Subsequent abdominal ultrasound was performed which showed borderline gallbladder wall thickening which is of doubtful significance. 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, lives at home with family - Social History Alcohol use: No CD- Drugs: No Caffeine use: Yes Place of Residence: Home Review of Systems 10-point ROS is otherwise unremarkable Gastrointestinal: Nausea, Abdominal Pain Physical Examination - Vital Signs Temperature: 97.2 F Blood Pressure: 144/72 Pulse: 82 Respirations: 18 - Physical Exam General: Alert, In no apparent distress, Oriented x3 HEENT: Atraumatic, PERRLA, EOMI Neck: Supple, 2+ carotid pulse no bruit, No LAD Respiratory: Clear to auscultation bilaterally, Normal air movement Cardiovascular: Regular rate/rhythm, Normal S1 S2 Gastrointestinal: Normal bowel sounds Musculoskeletal: No tenderness Integumentary: No rashes Neurological: Normal speech, Normal strength at 5/5 x4 extr, Normal affect - Studies Laboratory Data (last 24 hrs) 05/13/24 05/13/24 05/13/24 11:55 09:10 09:10 WBC 24.70 H Hgb 16.1 Hct 49.0 Plt Count 290 PT 10.7 INR 1.02 APTT 26.8 Sodium 139 Potassium 3.6 BUN 13 Creatinine 1.42 H Glucose 91 Total Bilirubin 0.2 AST 39 H ALT 57 Alkaline Phosphatase 43 L Lipase 83 H Assessment and Plan - Plan Assessment: Epigastric pain Eosinophilic esophagitis Systemic eosinophilia Leukocytosis Gallbladder wall thickening Hypertension Plan: Epigastric pain Eosinophilic esophagitis Systemic eosinophilia Leukocytosis Gallbladder wall thickening EGD performed 05/13 shows suspected eosinophilic esophagitis GI recommend starting twice daily PPI and further evaluation for eosinophilia General Surgery following as well, agrees with this plan currently Serial abdominal exams, repeat CBC in the morning Hypertension Continue losartan 100 mg daily DVT PPX: Lovenox Code status: Full Discharge Plan: Home Plan to discharge in: 48 Hours - Advance Directives Does patient have a Living Will: No Does patient have a Durable POA for Healthcare: No - Code Status/Comfort Care Code Status Assessed: Yes (Full code) Critical Care: No Time Spent Managing Pts Care (In Minutes): 68
[2024-05-13] MEDS: NA CHLORIDE 0.9% 500 ML ONE (16:17)
[2024-05-13 16:24] VITALS: BMI 25.7
[2024-05-13] MEDS ORDERED: HYDRALAZINE HCL 20 MG/ML VIAL IV PRN (17:05)
[2024-05-13] MEDS: NA CHLORIDE 0.9% 1,000 ML IV SCH (17:36)
--- NOTE | 2024-05-13 20:23 | CON ---
Date of Consultation: 05/13/2024 Chief Complaint: Abdominal pain. History Of Present Illness: The patient is a 34-year-old gentleman who presents to the emergency [facility] with approximately 1-week history of epigastric pain. The patient does have nausea, mild in nature . The patient denies any vomiting. The patient has increased pain after eating. The patient does n ot have any diarrhea, constipation, or blood in his stool. No dysuria or hematuria. No sore throat, runny nose, cough, headaches, dizziness. No chest pain. Review of Systems: Otherwise unremarkable. Past Medical History: Hypertension. Past Surgical History: Negative. Allergies: NO ALLERGIES. Social History: The patient does not smoke. Family History: Noncontributory. Physical Examination: Vital Signs: Stable. The patient is afebrile. General: He is awake and alert. Head and Neck: No masses. Chest: Clear. Heart: S1, S2. Abdomen: Soft, nondistended, nontender. Positive bowel sounds. Extremities: Neurovascularly intact. Neuro: Nonfocal. Laboratory Data: Reviewed. White count is 24.7, eosinophil percentage is 28.2, absolute eosinophil is 27. INR is 1.02. Chemistry reviewed. Lactic acid 0.7. Lipase is 83. AST is slightly high at 3 9. Total bilirubin and alkaline phosphatase are within normal limits. CT of the abdomen and pelvis reveals no acute significant abnormalities seen in the abdomen and pelvis. No acute appendicitis. N o urinary tract calculi. No biliary duct dilatation. Ultrasound shows borderline gallbladder wall t hickening which is doubtful significance. No axillary findings to suggest acute cholecystitis. Nega tive for cholelithiasis. There was mild circumferential thickening of the distal esophagus which cou ld reflect esophagitis on the CAT scan. The patient underwent the EGD and appears to have esophagiti s. Assessment: A 34-year-old gentleman with history of abdominal pain, esophagitis, leukocytosis, eosin ophilia. Recommendation: I discussed the case with the pathologist as well as the vocational horticulture instructor and Dr. Seth bach, who did the endoscopy and believe the patient does not have a surgical abdomen. Medical manageme nt is appropriate. The patient may benefit from steroids and can follow up with Hematology as an out patient. No need for any surgical intervention. Please consult surgery p.r.n. /MODL Voice ID: [id number] Report ID: [id number]
--- NOTE | 2024-05-13 20:23 | CON ---
Reason For Consultation: Abnormal CT, abdominal pain. History Of Presenting Illness: The patient is a 34-year-old gentleman who came to the ER with abdomi nal pain for 1 week. Pain in the epigastric region radiating to the back. Also reported some nausea . Imaging revealed evidence of thickening of the distal esophagus as well as gallbladder thickening. GI and Surgery consultation was requested. Allergies: NO KNOWN DRUG ALLERGIES. Home Medications: As in the chart. Past Medical History: Hypertension. Past Surgical History: None pertinent to the current issue. Social History: Denies any toxic habits. Family History: Noncontributory. Review of Systems: GI: As in HPI, otherwise negative. Remainder of 10-point review of systems is negative. Physical Examination: Vital Signs: Reviewed. Blood pressure 153/89, pulse 69, respiratory rate 15, oxygen 97% on room air . HEENT: Head atraumatic, normocephalic. Pupils equally reactive. Neck: Supple. Chest: Clear to auscultation bilaterally. Abdomen: Soft, nontender, nondistended. Bowel sounds present. Extremities: No pedal edema. Laboratory Data: Reviewed. Of note, he has significant eosinophilia and leukocytosis, which probabl y is related to the eosinophilia. Imaging as mentioned above. Impression: A 34-year-old gentleman with systemic eosinophilia on labs, abnormal imaging especially showing thickening of the esophagus. Plan: Continue current management. We will schedule the patient for an upper endoscopy. Risks and complication of the procedure which include, but are not limited to bleeding, infection, perforation, anesthesia complications were discussed. He understands and agrees. US/MODL Voice ID: [id number] Report ID: [id number]
[2024-05-13] MEDS: PANTOPRAZOLE 40 MG INJ IVP SCH (21:53)
[2024-05-13 23:40] VITALS: O2SAT 98
[2024-05-14] MEDS: PIPER TAZO 3.375 GM in NA CHLORIDE 0.9% 100 ML IV SCH (00:01)
[2024-05-14] MEDS: MORPHINE 2 MG/ML SYR IV PRN (04:20)
[2024-05-14 06:50] LABS: Absolute Basophils 0.1 K/uL (0-0.5); Absolute Eosinophils 6.5 K/uL (0-0.5); Absolute Lymphocytes (CBC) 2.8 K/uL (0.7-4.9); Absolute Monocytes 0.7 K/uL (0.1-1.3); Absolute Neutrophil 8.7 K/uL (1.8-8.0); Basophils % 0.3 % (0-1.3); Eosinophils % 34.8 % (0-4.4); Hematocrit 46.7 % (39.6-49.0); Hemoglobin 15.6 g/dL (13.6-17.9); Lymphocytes % 14.9 % (15.3-44.8); MCH 28.9 pg (27.0-35.0); MCHC 33.5 g/dL (32.0-36.0); MCV 86.2 fL (80-100); MPV 9.2 fL (7.6-11.3); Monocytes % 3.5 % (3.3-12.3); Neutrophils % 46.5 % (41.7-73.7); Platelets 260 thou/uL (152-406); RBC Red Blood Cell Count 5.41 M/uL (4.33-5.43); Red Cell Distribution Width 14.1 % (12.1-15.2)
[2024-05-14 07:14] LABS: Anion Gap 8.1 mEq/L (5.0-15.0); Bilirubin Total 0.5 mg/dL (0.2-1.0); Globulin 3.1 g/dL (2.3-3.5); Magnesium 2.2 mg/dL (1.6-2.4); Potassium 4.1 mEq/L (3.5-5.1); Protein, Total 6.1 g/dL (6.4-8.2)
[2024-05-14] MEDS: LOSARTAN POTASSIUM 50 MG TABLET PO SCH (08:58)
--- NOTE | 2024-05-14 10:24 | P.PN ---
Date of Service: 05/14/24 Subjective: No acute events overnight Tolerating diet, no real change in pain ROS: 10 point ROS as noted above, otherwise negative Physical exam GEN: Alert, oriented, NAD HEENT: Normal conjunctiva, sclera anicteric CV: Regular rate and rhythm, no edema Pulm: Nonlabored respirations on room air ABD: Soft, nontender, nondistended MSK: No joint tenderness Integumentary: No rashes Neuro: Normal speech, normal affect Vitals reviewed Assessment: Epigastric pain Eosinophilic esophagitis Systemic eosinophilia Leukocytosis Gallbladder wall thickening Hypertension Plan: Epigastric pain Eosinophilic esophagitis Systemic eosinophilia Leukocytosis Gallbladder wall thickening EGD performed 05/13 shows suspected eosinophilic esophagitis GI recommend starting twice daily PPI and further evaluation for eosinophilia General Surgery following as well, agrees with this plan currently Serial abdominal exams, repeat CBC with some mild improvement Denies travel outside of the country or consumption of undercooked/raw meats Denies significant allergy symptoms Stool sent for O&P, will take~ a week to get results Adding carafate to see if it helps with the epigastric pain Hypertension Continue losartan 100 mg daily DVT PPX: Lovenox Code status: Full Discharge Plan: Home Plan to discharge in: 48 Hours Time Spent Managing Pts Care (In Minutes): 35
[2024-05-14] MEDS: SUCRALFATE 1GM/10ML UCUP PO SCH (11:30)
[2024-05-14 12:57] VITALS: BP 176/99; TEMP 98.1
--- NOTE | 2024-05-14 15:52 | P.DS ---
Admission Date: 05/14/24 Discharge Date: 05/14/24 Disposition: ROUTINE DISCHARGE Discharge Condition: GOOD Reason for Admission: Abdominal pain Brief History of Present Illness: 34-year-old male with history of hypertension presents to the emergency department chief complaint of 1 week of epigastric abdominal pain. He was evaluated in the emergency department and his labs were significant for leukocytosis with a white blood cell count of 24.7 with 28.2% eosinophils, 12% neutrophils. CT of the abdomen pelvis was performed which demonstrated no acute or significant abnormality seen in the abdomen or pelvis, no acute appendicitis, no urinary tract calculi although it did show some distal esophageal thickening. Subsequent abdominal ultrasound was performed which showed borderline gallbladder wall thickening which is of doubtful significance. Case was discussed with general surgery and GI, GI elects to take patient for EGD to further evaluate the distal esophageal thickening Hospital Course: Assessment: Epigastric pain Eosinophilic esophagitis Systemic eosinophilia Leukocytosis Gallbladder wall thickening Hypertension Patient presented to the hospital with chief complaint of epigastric abdominal pain for the last 1 week with associated diarrheayellow in color. He was evaluated in the emergency department and found to have leukocytosis, primarily eosinophilic with a white blood cell count of 24.7, 20.2% eosinophils, 7 absolute neutrophils also 12% neutrophils. CT abdomen pelvis was performed which showed mild circumferential thickening of the distal esophagus which could reflect esophagitis, no other acute findings were noted. Subsequent abdominal ultrasound was performed which showed borderline gallbladder wall thickening which is of doubtful significance. No ancillary findings to suggest acute cholecystitis. Negative for cholelithiasis. GI and general surgery were consulted, GI performed endoscopy/EGD which showed diffuse eosinophilic esophagitis seen in the esophagus. Multiple cold forceps biopsies were taken from the proximal esophagus and the midesophagus. Esophagitis was seen in the distal esophagus, a few cold forceps biopsies were taken of this as well. A small hiatal hernia was found in the distal esophagus. Mild patchy chronic gastritis was seen in the stomach, multiple cold forceps biopsies were taken of this area as well. From a GI standpoint the plan is to start Protonix twice daily, await pathology results and follow-up in the clinic in the next 2 weeks. Patient was seen and examined by general surgery, it does not appear that the gallbladder is inflamed/infected or causing his pain. We will hold off on any further surgical intervention. A CBC was repeated this morning and the white blood cell count decreased to 18.7, absolute eosinophils down to 6.5, still at 34.8% eosinophil count. Patient's abdominal pain is mildly improved with the twice daily Protonix and Carafate, we discussed continued monitoring in the hospital overnight for repeat CBC in the morning and patient declined wishing to be discharged today. Of note patient did provide a stool sample which was sent for evaluation for ova and parasite, he denies any travel outside the country or consumption of raw or undercooked meats. Denies any regular allergy symptoms as well. Case was discussed with hematology who recommends outpatient referral for evaluation in clinic. Patient should establish himself with local primary care doctor and obtain referral to see hematology in the clinicDr. Sheridan. Currently patient has pending tests including ova and parasite as well as multiple biopsies from the stomach and esophagus. Recommend you establish yourself with a local primary care doctor in the next 1 to 2 weeks Follow-up with Dr. Frankie HELLER in 2 weeks Obtain referral for hematology from PCP to see in regards to the elevated eosinophil count and blood work as well as the eosinophilic esophagitis Vital Signs/Physical Exam: Temp Pulse Resp BP Pulse Ox 98.1 F 73 18 176/99 H 98 05/14/24 12:56 05/14/24 12:56 05/14/24 12:56 05/14/24 12:56 05/14/24 12:56 General: Alert, In no apparent distress, Oriented x3 HEENT: Atraumatic, PERRLA Neck: Supple, JVD not distended Respiratory: Clear to auscultation bilaterally, Normal air movement Cardiovascular: Regular rate/rhythm, Normal S1 S2 Gastrointestinal: Normal bowel sounds, No tenderness Musculoskeletal: No tenderness Integumentary: No rashes Neurological: Normal speech, Normal affect Laboratory Data at Discharge: WBC 18.70 thou/uL (4.3-10.9) H 05/14/24 05:40 Hgb 15.6 g/dL (13.6-17.9) 05/14/24 05:40 Hct 46.7 % (39.6-49.0) 05/14/24 05:40 Plt Count 260 thou/uL (152-406) 05/14/24 05:40 PT 10.7 SECONDS (9.4-12.5) 05/13/24 11:55 INR 1.02 05/13/24 11:55 APTT 26.8 SECONDS (24.3-36.9) 05/13/24 11:55 Sodium 140 mEq/L (136-145) 05/14/24 05:40 Potassium 4.1 mEq/L (3.5-5.1) D 05/14/24 05:40 BUN 7 mg/dL (7-18) 05/14/24 05:40 Creatinine 1.41 mg/dL (0.70-1.30) H 05/14/24 05:40 Glucose 84 mg/dL (74-106) 05/14/24 05:40 Magnesium 2.2 mg/dL (1.6-2.4) 05/14/24 05:40 Total Bilirubin 0.5 mg/dL (0.2-1.0) 05/14/24 05:40 AST 28 U/L (15-37) 05/14/24 05:40 ALT 48 U/L (16-61) 05/14/24 05:40 Alkaline Phosphatase 34 U/L (45-117) L D 05/14/24 05:40 Lipase 61 U/L (13-75) 05/13/24 15:57 Home Medications: Losartan Potassium [Cozaar] 100 mg PO DAILY 05/13/24 Pantoprazole [Protonix Tab] 40 mg PO BID 30 Days #60 tab 05/14/24 Sucralfate [Carafate Liq] 10 ml PO ACHS #1200 ml 05/14/24 New Medications: Sucralfate [Carafate Liq] 10 ml PO ACHS #1200 ml Pantoprazole [Protonix Tab] 40 mg PO BID 30 Days #60 tab Physician Discharge Instructions: Patient presented to the hospital with chief complaint of epigastric abdominal pain for the last 1 week with associated diarrheayellow in color. He was evaluated in the emergency department and found to have leukocytosis, primarily eosinophilic with a white blood cell count of 24.7, 20.2% eosinophils, 7 absolute neutrophils also 12% neutrophils. CT abdomen pelvis was performed which showed mild circumferential thickening of the distal esophagus which could reflect esophagitis, no other acute findings were noted. Subsequent abdominal ultrasound was performed which showed borderline gallbladder wall thickening which is of doubtful significance. No ancillary findings to suggest acute cholecystitis. Negative for cholelithiasis. GI and general surgery were consulted, GI performed endoscopy/EGD which showed diffuse eosinophilic esophagitis seen in the esophagus. Multiple cold forceps biopsies were taken from the proximal esophagus and the midesophagus. Esophagitis was seen in the distal esophagus, a few cold forceps biopsies were taken of this as well. A small hiatal hernia was found in the distal esophagus. Mild patchy chronic gastritis was seen in the stomach, multiple cold forceps biopsies were taken of this area as well. From a GI standpoint the plan is to start Protonix twice daily, await pathology results and follow-up in the clinic in the next 2 weeks. Patient was seen and examined by general surgery, it does not appear that the gallbladder is inflamed/infected or causing his pain. We will hold off on any further surgical intervention. A CBC was repeated this morning and the white blood cell count decreased to 18.7, absolute eosinophils down to 6.5, still at 34.8% eosinophil count. Patient's abdominal pain is mildly improved with the twice daily Protonix and Carafate, we discussed continued monitoring in the hospital overnight for repeat CBC in the morning and patient declined wishing to be discharged today. Of note patient did provide a stool sample which was sent for evaluation for ova and parasite, he denies any travel outside the country or consumption of raw or undercooked meats. Denies any regular allergy symptoms as well. Case was discussed with hematology who recommends outpatient referral for evaluation in clinic. Patient should establish himself with local primary care doctor and obtain referral to see hematology in the clinicDr. Sheridan. Currently patient has pending tests including ova and parasite as well as multiple biopsies from the stomach and esophagus. Recommend you establish yourself with a local primary care doctor in the next 1 to 2 weeks Follow-up with Dr. Frankie HELLER in 2 weeks Obtain referral for hematology from PCP to see in regards to the elevated eosinophil count and blood work as well as the eosinophilic esophagitis Diet: Regular Activity: Ad kalpesh Followup: Kenji Sheridan MD [ACTIVE - CAN ADMIT] - 1-2 Weeks NONE,NONE [Primary Care Provider] - 1-2 Weeks Barry Montiel MD [ACTIVE - CAN ADMIT] - 1-2 Weeks Time spent managing pt's care (in minutes): 64
--- NOTE | 2024-05-14 18:50 | CON ---
Date of Consultation: 05/14/2024 Additional Consulting Physician: Dr. Peralta. Reason For Consultation: Elevated BUN and creatinine, renal failure. History Of Present Illness: This is a pleasant 34-year-old gentleman with significant past medical h istory of hypertension, on losartan, hyperlipidemia, the patient came to the hospital complaining fro m abdominal pain, found to have leukocytosis and eosinophilia with elevation in BUN and creatinine. For that reason, we have been consulted. The patient denied taking any nonsteroidal. No rash. No i tching. No hives. GFR above 60. Past Medical History: Hypertension. Allergies: NO KNOWN DRUGS ALLERGY. Social History: Denied smoking. Denied drinking. Denied drugs abuse. Review of Systems: Head and Neck: No red eye. No ear pain. GI: Epigastric pain. : No polyuria. No dysuria. No hematuria. FINANCIAL ADMINISTRATION OFFICER: Not applicable. Respiratory: No shortness of breath. Cardiovascular: No chest pain. Endocrine: No polydipsia. Skin: No rash. Neuro: No neuropathy. No weakness. Musculoskeletal: No joint pain. Physical Examination: Vital Signs: When I saw the patient, blood pressure 176/91, pulse of 97. Chest: Clear to auscultation. Heart: S1, S2. Regular. Abdomen: Soft, nontender. Extremities: No edema. Neurologic: Alert. No focality. Skin: No rashes. No lesion. Lymph Node System: No lymphadenopathy in all group. Laboratory Data: WBC 18.7, hemoglobin 15.6, eosinophil 34%, absolute count 4, eosinophil is 6500. S odium 140, potassium 4.1, bicarb 26, BUN 7, creatinine 1.4, GFR of 67, calcium 8.1. CT abdomen and p brian show normal size kidney, no hydronephrosis, no infiltration. EGD was done, eosinophilic esopha gitis. Assessment And Plan: 1. Acute kidney injury. Doubt to be TERI. No other support. We will send for urine eosinophil. Giv en the normal kidney function, I do not see any indication for any treatment for the time being. 2. Hypertension, controlled, optimal. Continue ARB. 3. Eosinophilic esophagitis as by GI. 4. Hypokalemia. We will supplement. 5. Alkalosis secondary to GI loss. Continue hydration. The patient cleared from the renal standpoin t for discharge planning. EDITH Voice ID: [id number] Report ID: [id number]
== END 2024-05-14 17:20 | disposition home or self-care (01) | DRG 392 ==
LOC: ER 08:21 → ERHOLD 12:21 → 4TH 14:59 → OBSVTOIN 05-14 10:27
PROVIDERS: ADMIT Hospitalist; ATTEND Hospitalist
PROC: 0DB68ZX Excision of Stomach, Via Natural or Artificial Opening Endoscopic, Diagnostic (ICD-10-PCS; 2024-05-13)
PROC: 0DB18ZX Excision of Upper Esophagus, Via Natural or Artificial Opening Endoscopic, Diagnostic (ICD-10-PCS; 2024-05-13)
PROC: 0DB28ZX Excision of Middle Esophagus, Via Natural or Artificial Opening Endoscopic, Diagnostic (ICD-10-PCS; 2024-05-13)
PROC: 0DB38ZX Excision of Lower Esophagus, Via Natural or Artificial Opening Endoscopic, Diagnostic (ICD-10-PCS; principal; 2024-05-13 14:25)
DX: K20.0 Eosinophilic esophagitis (principal); N17.9 Acute kidney failure, unspecified; E87.3 Alkalosis; E87.6 Hypokalemia; I10 Essential (primary) hypertension; K29.70 Gastritis, unspecified, without bleeding; D72.19 Other eosinophilia; K44.9 Diaphragmatic hernia without obstruction or gangrene; Z79.899 Other long term (current) drug therapy
CPT/HCPCS: 36415; 74177; 76705; 80053; 83605; 83690; 83735; 85025; 85610; 85730; 87040; 87177; 87209; 88305; 88312; 96365; 96375; 99285; G0378; J2003; J2270; J2405; J2470; J2543; J2704; J7030; J7040; Q9967